=== PATIENT | female | born 1990 | race Hispanic/Latino ===

== ENCOUNTER 2021-02-10 10:15 | Outpatient (CLI) | payer OTHER ==
[2021-02-10 17:49] LABS: SARS-CoV-2 PCR by NAA Not Detected (NotDetected)
== END 2021-02-10 10:16 | disposition home or self-care (01) ==
LOC: CSHLAB 10:15
PROVIDERS: ATTEND Obstetrics & Gynecology
DX: Z20.822 Contact with and (suspected) exposure to COVID-19 (principal)
CPT/HCPCS: 87635; U0003; U0005

== ENCOUNTER 2021-02-15 19:15 | Inpatient (IN) | payer OTHER ==
[~2021-02-15 19:15] MED LIST: Bupivacaine 0.25% HCL 30 ML VIAL ONE; ePHEDrine Sulfate 50 MG/10 ML VIAL ONE
[2021-02-15 22:37] VITALS: BMI 38.9
[2021-02-15] MEDS ORDERED: HYDROcodone/Acetaminophen 5/325 mg Tablet PO PRN ×2 (22:49)
[2021-02-15] MEDS ORDERED: Diphenoxylate HCl/Atropine Tablet PO PRN ×2 (22:49)
[2021-02-15] MEDS ORDERED: Ondansetron PF 4 MG/2 ML Vial IVP PRN (22:49)
[2021-02-15] MEDS ORDERED: Docusate 100 MG CAP PO PRN (22:49)
[2021-02-15] MEDS ORDERED: Ibuprofen 800 MG TAB PO PRN (22:49)
[2021-02-15] MEDS ORDERED: hydrALAZINE 20 MG/ML VIAL SLOW IVP PRN (22:49)
[2021-02-15] MEDS ORDERED: Promethazine HCl 25 MG/ML VIAL IM PRN (22:49)
[2021-02-15] MEDS ORDERED: Acetaminophen 500 MG TAB PO PRN (22:49)
[2021-02-15] MEDS ORDERED: Penicillin G 2.5 MILL.units 2.5 MILL.UNITS in Premix Bag 1 BAG IVPB SCH (22:49)
[2021-02-15] MEDS ORDERED: Penicillin G Potassium 5 MILL.UNITS in Sodium Chloride 0.9% 100 ML IVPB SCH (22:49)
[2021-02-15] MEDS ORDERED: Lidocaine 1% (PF) 30 ML VIAL SC PRN (22:49)
[2021-02-15] MEDS ORDERED: Zolpidem Tartrate 5 MG TAB PO PRN (22:49)
[2021-02-15] MEDS ORDERED: Misoprostol 200 MCG TAB PR PRN (22:49)
[2021-02-15] MEDS ORDERED: Butorphanol Tartrate 1 MG/ML VIAL SLOW IVP PRN (22:49)
[2021-02-15] MEDS: Misoprostol 100 MCG TAB VAG SCH (23:16)
[2021-02-15 23:58] LABS: Mean Corpuscular HGB CONC 33.9 g/dL (32.0-36.0); Mean Corpuscular Hemoglobin 30.2 pg (27.0-33.0); Mean Corpuscular Volume 88.9 fl (81.6-98.3); Mean Platelet Volume 10.3 fl (7.4-10.4); Platelet Count 262 10x3/uL (150-450); RBC Distribution Width 13.8 % (11.5-14.5); Red Blood Cell (RBC) Count 3.98 10x6/uL (3.90-5.03)
[2021-02-16] MEDS: Clindamycin/D5W 900 MG in Premix Bag 1 BAG IVPB SCH ×3 (00:03→15:55)
[2021-02-16 00:27] LABS: Hep B Surf Ag Non-Reactive S/CO (NonReactive); Syphilis Antibody Nonreactive (Nonreactive); Syphilis Antibody Index 0.03 S/CO (<1.00 Non-Reactive)
[2021-02-16 00:29] LABS: HBSAg Index 0.15 S/CO (0-0.99)
[2021-02-16] MEDS: NS w/ Oxytocin 30 units 500 ML IV PRN ×2 (04:07→19:58)
[2021-02-16] MEDS ORDERED: Fentanyl 4 mcg/Bup 0.1% Cadd 100 ML ONE (09:05)
[2021-02-16] MEDS: Lactated Ringer's 1,000 ML IV SCH ×2 (09:31→12:35)
[2021-02-16] MEDS ORDERED: Ondansetron PF 4 MG/2 ML Vial IVP PRN ×2 (09:46→19:56)
[2021-02-16] MEDS ORDERED: Lactated Ringer's 500 ML IV PRN (09:46)
[2021-02-16] MEDS ORDERED: diphenhydrAMINE 50 MG/ML VIAL IVP PRN (09:46)
[2021-02-16] MEDS ORDERED: Acetaminophen 325 MG TAB PO PRN ×2 (09:46→19:57)
[2021-02-16] MEDS ORDERED: Naloxone HCl 0.4 mg/ml Vial IVP PRN ×2 (09:46)
[2021-02-16] MEDS ORDERED: Promethazine HCl 25 MG/ML VIAL IM PRN (09:46)
[2021-02-16] MEDS: Fentanyl 4 mcg/Bupivacaine 0.1% Cassette 100 ML EPIDURAL SCH ×2 (09:47→17:45)
[2021-02-16] MEDS ORDERED: Hydrocerin (Eucerin) Cream 120 gm Jar TOP PRN (09:54)
[2021-02-16] MEDS ORDERED: ePHEDrine Sulfate 50 MG/10 ML VIAL SLOW IVP PRN (09:55)
[2021-02-16] MEDS ORDERED: Communication Order-Pharmacy FS SCH (10:00)
[2021-02-16] MEDS: Misoprostol 100 MCG TAB VAG SCH ×2 (13:25→15:10)
[2021-02-16] MEDS ORDERED: Bisacodyl 10 MG SUPP PR PRN (19:56)
[2021-02-16] MEDS ORDERED: Zolpidem Tartrate 5 MG TAB PO PRN (19:56)
[2021-02-16] MEDS ORDERED: HYDROcodone/Acetaminophen 5/325 mg Tablet PO PRN ×2 (19:56)
[2021-02-16] MEDS ORDERED: Lanolin Ointment 7 GM TUBE TOP PRN (19:56)
[2021-02-16] MEDS ORDERED: Misoprostol 200 MCG TAB VAG PRN (19:56)
[2021-02-16] MEDS ORDERED: Adacel (T-DAP) 0.5 ML SYRINGE IM ONE (19:56)
[2021-02-16] MEDS ORDERED: hydrALAZINE 20 MG/ML VIAL SLOW IVP PRN (19:56)
[2021-02-16] MEDS ORDERED: Benzocaine-Menthol 82.5 ML CAN TOP PRN (19:56)
[2021-02-16] MEDS ORDERED: Milk Of Magnesia 30 ML UDCUP PO PRN (19:56)
[2021-02-16] MEDS ORDERED: Witch Hazel-Glycerin 1 EACH JAR TOP PRN (19:57)
[2021-02-16] MEDS ORDERED: NS / Oxytocin 40 units/1000ml 1,000 ML IV SCH (20:00)
[2021-02-16 20:36] LABS: pH (Cord, venous) 7.151 (7.250-7.350)
[2021-02-16] MEDS: Docusate Calcium (SURFAK) 240 MG CAP PO SCH (23:55)
[2021-02-16] MEDS: Ibuprofen 800 MG TAB PO SCH (23:55)
[2021-02-17 07:12] LABS: Hemoglobin 11.2 g/dL (12.0-15.5); Mean Corpuscular HGB CONC 33.6 g/dL (32.0-36.0); Mean Corpuscular Hemoglobin 30.5 pg (27.0-33.0); Mean Corpuscular Volume 90.7 fl (81.6-98.3); Mean Platelet Volume 10.9 fl (7.4-10.4); Platelet Count 237 10x3/uL (150-450); RBC Distribution Width 13.8 % (11.5-14.5); Red Blood Cell (RBC) Count 3.67 10x6/uL (3.90-5.03); White Blood Cell (WBC) Count 17.5 10x3/uL (3.5-10.5)
[2021-02-17] MEDS: Misoprostol 100 MCG TAB VAG SCH (07:29)
[2021-02-17] MEDS: Lactated Ringer's 1,000 ML IV SCH (07:29)
[2021-02-17] MEDS: Ferrous Sulfate 325 MG TAB PO SCH ×2 (07:30→16:46)
[2021-02-17] MEDS: Ibuprofen 800 MG TAB PO SCH ×3 (08:27→21:20)
[2021-02-17] MEDS: Prenatal Vitamin 1 TAB PO SCH (08:28)
[2021-02-17] MEDS: Docusate Calcium (SURFAK) 240 MG CAP PO SCH ×2 (08:28→21:19)
[2021-02-18] MEDS: Ibuprofen 800 MG TAB PO SCH ×2 (05:22→13:58)
[2021-02-18] MEDS: Ferrous Sulfate 325 MG TAB PO SCH ×2 (07:47→16:42)
[2021-02-18 08:07] VITALS: BP 107/63; TEMP 98.4
[2021-02-18] MEDS: Prenatal Vitamin 1 TAB PO SCH (09:19)
[2021-02-18] MEDS: Docusate Calcium (SURFAK) 240 MG CAP PO SCH (09:19)
== END 2021-02-18 17:20 | disposition home or self-care (01) | DRG 806 ==
LOC: EDSTATUS 19:15 → CSHLD 22:04 → CSHPP 02-16 23:00
PROVIDERS: ADMIT Obstetrics & Gynecology; ATTEND Obstetrics & Gynecology
PROC: 3E0D7GC Introduction of Other Therapeutic Substance into Mouth and Pharynx, Via Natural or Artificial Opening (ICD-10-PCS; 2021-02-15)
PROC: 3E033VJ Introduction of Other Hormone into Peripheral Vein, Percutaneous Approach (ICD-10-PCS; 2021-02-15)
PROC: 10D07Z6 Extraction of Products of Conception, Vacuum, Via Natural or Artificial Opening (ICD-10-PCS; principal; 2021-02-16)
PROC: 10907ZC Drainage of Amniotic Fluid, Therapeutic from Products of Conception, Via Natural or Artificial Opening (ICD-10-PCS; 2021-02-16)
PROC: 3E0234Z Introduction of Serum, Toxoid and Vaccine into Muscle, Percutaneous Approach (ICD-10-PCS; 2021-02-17)
DX: O36.63X0 Maternal care for excessive fetal growth, third trimester, not applicable or unspecified (principal); Z37.0 Single live birth; Z3A.39 39 weeks gestation of pregnancy; D62 Acute posthemorrhagic anemia; O72.1 Other immediate postpartum hemorrhage; Z20.822 Contact with and (suspected) exposure to COVID-19; O99.62 Diseases of the digestive system complicating childbirth; O99.334 Smoking (tobacco) complicating childbirth; K21.9 Gastro-esophageal reflux disease without esophagitis; F17.200 Nicotine dependence, unspecified, uncomplicated; O26.893 Other specified pregnancy related conditions, third trimester; O99.824 Streptococcus B carrier state complicating childbirth; Z67.41 Type O blood, Rh negative; Z79.899 Other long term (current) drug therapy; O90.81 Anemia of the puerperium; O76 Abnormality in fetal heart rate and rhythm complicating labor and delivery
CPT/HCPCS: 36415; 51702; 82805; 85027; 85461; 86780; 86850; 86870; 86900; 86901; 87340; 90384; 96372; J2590; J3490; S0020

== ENCOUNTER 2024-10-12 08:13 | Outpatient (CLI) | payer BC | END 2024-10-12 08:14 | disposition home or self-care (01) | LOC: CSHULT 08:13 | PROVIDERS: ATTEND Nurse Practitioner Family | DX: R74.8 Abnormal levels of other serum enzymes (principal); K82.0 Obstruction of gallbladder; K76.0 Fatty (change of) liver, not elsewhere classified | CPT/HCPCS: 76705 ==

== ENCOUNTER 2024-10-26 09:10 | Outpatient (CLI) | payer OTHER | END 2024-10-26 09:11 | disposition home or self-care (01) | LOC: CSHDTY/OP 09:10 | PROVIDERS: ATTEND Nurse Practitioner Family | DX: E66.9 Obesity, unspecified (principal); E11.9 Type 2 diabetes mellitus without complications | CPT/HCPCS: 97802 ==